=== PATIENT | male | born 1945 | race Caucasian/White ===

== ENCOUNTER → 2019-07-24 | Outpatient (CLI) | payer MEDICARE ==
[2019-07-24 14:59] LABS: Basophils % (A) 0 %; Eosinophils # (A) 0.1 k/uL (0-0.7); Eosinophils % (A) 2 %; HCT 40.9 % (39.0-53.0); HGB 12.8 gm/dL (13.0-17.5); Lymphocytes # (A) 2.5 k/uL (1.0-4.8); Lymphocytes % (A) 35 %; MCH 28.9 pg (25.0-35.0); MCHC 31.2 g/dL (31.0-37.0); MCV 92.5 fL (80.0-100.0); Mean Platelet Volume 6.3; Monocytes # (A) 0.6 k/uL (0-1.0); Monocytes % (A) 8 %; Neutrophils # (A) 3.7 k/uL (1.3-7.7); Neutrophils % (A) 51 %; Platelet Count 257 k/uL (150-450); RBC 4.42 m/uL (4.30-5.90); RDW 14.7 % (11.5-15.5); WBC 7.3 k/uL (3.8-10.6)
[2019-07-24 19:16] LABS: Iron Saturation 30.13 (15.00-50.00)
[2019-07-24 19:34] LABS: Ferritin 14.3 ng/mL (22.0-322.0)
== END | disposition home or self-care (01) ==
LOC: LABWHC1 14:18
PROVIDERS: ATTEND Internal Medicine Gastroenterology
DX: D50.9 Iron deficiency anemia, unspecified (principal)
CPT/HCPCS: 36415; 82728; 83540; 83550; 85025

== ENCOUNTER → 2019-11-21 | Outpatient (CLI) | payer MEDICARE ==
--- NOTE | 2019-11-22 17:00 | ECHOF ---
Referral Reason:I70 atherosclerosis MEASUREMENTS -------- HEIGHT: 190.5 cm WEIGHT: 95.3 kg BP: 121/70 RVIDd: 3.4 cm (< 3.3) IVSd: 1.1 cm (0.6 - 1.1) LVIDd: 4.3 cm (3.9 - 5.3) LVPWd: 1.0 cm (0.6 - 1.1) IVSs: 1.9 cm LVIDs: 2.9 cm LVPWs: 1.8 cm LA Diam: 2.9 cm (2.7 - 3.8) LAESV Index (A-L): 25.13 ml/m Ao Diam: 4.0 cm (2.0 - 3.7) AV Cusp: 2.4 cm (1.5 - 2.6) MV EXCURSION: 15.618 mm (> 18.000) MV EF SLOPE: 49 mm/s (70 - 150) EPSS: 0.8 cm MV E Anthony: 0.81 m/s MV DecT: 307 ms MV A Anthony: 0.95 m/s MV E/A Ratio: 0.85 RAP: 5.00 mmHg RVSP: 24.13 mmHg TAPSE: 16.40 mm FINDINGS -------- Sinus rhythm. This was a technically good study. The left ventricular size is normal. Left ventricular wall thickness is normal. Overall left vent ricular systolic function is normal with, an EF between 60 - 65 %. The right ventricle is mildly enlarged. Normal LA size by volume 22+/-6 ml/m2. The right atrium is normal in size. Interatrial and interventricular septum intact. There is mild aortic valve sclerosis. Trace amount of aortic regurgitation. Mild mitral annular calcification present. There is trace mitral regurgitation. Mild tricuspid regurgitation present. Right ventricular systolic pressure is normal at < 35 mmHg. Trace/mild (physiologic) pulmonic regurgitation. The aortic root is dilated measuring 4.0cm. Normal inferior vena cava with normal inspiratory collapse consistent with estimated right atrial pre ssure of 5 mmHg. There is no pericardial effusion. CONCLUSIONS -------- 1. Sinus rhythm. 2. This was a technically good study. 3. The left ventricular size is normal. 4. Left ventricular wall thickness is normal. 5. Overall left ventricular systolic function is normal with, an EF between 60 - 65 %. 6. The right ventricle is mildly enlarged. 7. Normal LA size by volume 22+/-6 ml/m2. 8. The right atrium is normal in size. 9. Interatrial and interventricular septum intact. 10. There is mild aortic valve sclerosis. 11. Trace amount of aortic regurgitation. 12. Mild mitral annular calcification present. 13. There is trace mitral regurgitation. 14. Mild tricuspid regurgitation present. 15. Right ventricular systolic pressure is normal at < 35 mmHg. 16. Trace/mild (physiologic) pulmonic regurgitation. 17. The aortic root is dilated measuring 4.0cm. 18. Normal inferior vena cava with normal inspiratory collapse consistent with estimated right atrial pressure of 5 mmHg. 19. There is no pericardial effusion. TRIAL COURT JUSTICE: Janice Lujan RDCS
== END | disposition home or self-care (01) ==
LOC: RADECHMAIN 12:56
PROVIDERS: ATTEND Internal Medicine
DX: I08.3 Combined rheumatic disorders of mitral, aortic and tricuspid valves (principal); I08.8 Other rheumatic multiple valve diseases; I70.8 Atherosclerosis of other arteries
CPT/HCPCS: 93306

== ENCOUNTER → 2019-12-01 | Outpatient (CLI) | payer MEDICARE ==
[2019-12-01 16:00] LABS: African American GFR (CKD) >90 (>60 ml/min/1.73 sqM); Blood Urea Nitrogen 13 mg/dL (9-20); Non-African American GFR(CKD) 86 (>60 ml/min/1.73 sqM)
--- NOTE | 2019-12-03 09:23 | CT ---
EXAMINATION TYPE: CT chest w con DATE OF EXAM: 12/01/2019 COMPARISON: None HISTORY: 74-year-old male Thoracic aortic ectasia TECHNIQUE: Contiguous axial scanning of the chest after the administration of 100 mL of Isovue 300. Coronal/sagittal reconstructions performed. CT DLP: 649mGycm. Automatic exposure control utilized for a dose reduction. FINDINGS: Heart normal size without pericardial effusion. Ectatic aortic root at 3.9 cm. Mildly aneurysmal ascending aorta 4.2 cm. Conventional chest branching anatomy. Only minimal scattered atherosclerotic calcifications are prese nt. Ectatic upper descending thoracic aorta 3.4 cm. Mildly tortuous descending thoracic aorta and borderline ectasia distally at 2.6 cm. No thoracic lymphadenopathy by CT size criteria. Biapical pleural parenchymal scarring in the lungs. Strandy reticular subpleural atelectasis and scar ring at the posterior lung bases. Minimal traction bronchiolectasis within the medial right lower lob e. No consolidation or pleural effusion. Subcentimeter hypodensity in the hepatic dome too small for accurate CT characterization, probable ti ny cyst. Bones: Moderate degenerative disc disease mid to lower thoracic spine. No osseous destructive process . IMPRESSION: 1. Ectatic thoracic aorta with mild aneurysm ascending aorta at 4.2 cm. The upper descending thoracic aorta measures up to 3.4 cm. Aortic root measures ectatic at 3.9 cm. 2. Biapical pleural-parenchymal scarring along with some strandy subpleural atelectasis and scarring at the posterior lung bases. Some associated minimal traction bronchiolectasis at the right base prob ably from chronic postinfectious/inflammatory sequela.
== END | disposition home or self-care (01) ==
LOC: RADCTMAIN 15:24
PROVIDERS: ATTEND Internal Medicine
DX: I77.810 Thoracic aortic ectasia (principal); J98.4 Other disorders of lung; J98.11 Atelectasis; J47.9 Bronchiectasis, uncomplicated
CPT/HCPCS: 82565; 84520; 71260; 36415; Q9967

== ENCOUNTER → 2019-12-02 | Outpatient (CLI) | payer MEDICARE ==
--- NOTE | 2019-12-02 18:28 | MR ---
EXAMINATION TYPE: MR iac wo/w con DATE OF EXAM: 12/02/2019 COMPARISON: None HISTORY: Acoustic nerve disorder, RT side hearing loss TECHNIQUE: Multiplanar, multisequence images of the brain and brainstem is performed without and with IV contras t, utilizing 9.5 mL intravenous Gadavist . FINDINGS: Diffusion weighted images demonstrate no evidence of a recent infarct or other diffusion ab normality. Mild generalized degenerative change. There are both diffuse and focal areas of abnormal s ignal seen throughout the white matter nonspecific pattern but most typical of vascular ischemia. Midline structures demonstrate normal morphology. The craniocervical junction appears within normal limits. Post contrast images demonstrate no abnormal enhancement. The dural venous sinuses appear pa tent. Changes of chronic sinusitis noted. The orbits are symmetric appearance. Mastoid air cells are clear. Visualized nasopharynx and oropharynx are symmetric. There are there are couple 5 mm areas of low sig nal on T1 within the posterior nasopharynx mucosa to small to characterize and only partially include d. High signal seen on T1 sagittal along the parietal dura appears to correspond to calcifications se en by previous CT scan of 2016 and therefore likely benign. IMPRESSION: 1. No evidence of cerebellar pontine angle mass or acoustic schwannoma. 2. Degenerative and extensive nonspecific white matter changes most typical remote microvascular isch emia. 3. There is mild prominence to the nasopharynx with 3 sub-5 mm rounded or oval areas of signal. Could represent small mucosal lesions. Recommend follow-up CT soft tissue neck. #4 moderate changes of chr onic sinusitis
== END | disposition home or self-care (01) ==
LOC: RADMRIMAIN 09:46
PROVIDERS: ATTEND Otolaryngology
DX: G31.9 Degenerative disease of nervous system, unspecified (principal); H91.90 Unspecified hearing loss, unspecified ear; R90.89 Other abnormal findings on diagnostic imaging of central nervous system
CPT/HCPCS: 70553; A9585

== ENCOUNTER → 2020-02-25 | Outpatient (CLI) | payer MEDICARE ==
[2020-02-25 12:12] LABS: Basophils % (A) 0 %; Eosinophils # (A) 0.1 k/uL (0-0.7); Eosinophils % (A) 1 %; HCT 46.2 % (39.0-53.0); HGB 15.1 gm/dL (13.0-17.5); Lymphocytes # (A) 2.2 k/uL (1.0-4.8); Lymphocytes % (A) 36 %; MCH 30.7 pg (25.0-35.0); MCHC 32.7 g/dL (31.0-37.0); MCV 94.1 fL (80.0-100.0); Mean Platelet Volume 7.6; Monocytes # (A) 0.4 k/uL (0-1.0); Monocytes % (A) 6 %; Neutrophils # (A) 3.2 k/uL (1.3-7.7); Neutrophils % (A) 52 %; Platelet Count 306 k/uL (150-450); RBC 4.91 m/uL (4.30-5.90); RDW 13.3 % (11.5-15.5); WBC 6.1 k/uL (3.8-10.6)
[2020-02-25 16:20] LABS: % Iron Saturation 62.34 (15.00-50.00)
[2020-02-25 16:30] LABS: Ferritin 28.3 ng/mL (22.0-322.0)
== END | disposition home or self-care (01) ==
LOC: LABWHC1 11:19
PROVIDERS: ATTEND Nurse Practitioner
DX: D50.9 Iron deficiency anemia, unspecified (principal)
CPT/HCPCS: 36415; 82728; 83540; 83550; 85025

== ENCOUNTER → 2020-12-10 | Outpatient (CLI) | payer MEDICARE ==
--- NOTE | 2020-12-10 21:53 | CT ---
EXAMINATION TYPE: CT chest wo con DATE OF EXAM: 12/10/2020 COMPARISON: 12/01/2019. HISTORY: f/u aneurysm CT DLP: 242 mGycm. Automated Exposure Control for Dose Reduction was Utilized. TECHNIQUE: CT scan of the thorax is performed without IV contrast. FINDINGS: LUNGS: There is mild bibasilar atelectasis. Otherwise the lungs are grossly clear, there is no concer maki parenchymal mass or nodule identified. There is no pleural effusion or pneumothorax seen. The tracheobronchial tree is patent. MEDIASTINUM: Lack of IV contrast is noted to limit evaluation for mediastinal and especially hilar ad enopathy. There is stable 4.2 cm descending aortic aneurysm. There are no definitive greater than 1 c m hilar or mediastinal lymph nodes. No cardiomegaly or pericardial effusion is seen. OTHER: No additional significant abnormality is seen. IMPRESSION: Stable 4.2 cm ascending aortic aneurysm. Otherwise no acute abnormality.
== END | disposition home or self-care (01) ==
LOC: RADCTMAIN 17:53
PROVIDERS: ATTEND Internal Medicine
DX: I71.2 Thoracic aortic aneurysm, without rupture (principal)
CPT/HCPCS: 71250

== ENCOUNTER → 2021-07-12 | Outpatient (CLI) | payer MEDICARE | END | disposition home or self-care (01) | LOC: LABWHC1 11:29 | PROVIDERS: ATTEND Internal Medicine | DX: Z01.84 Encounter for antibody response examination (principal) | CPT/HCPCS: 36415; 86769 ==

== ENCOUNTER 2021-09-23 21:33 | Emergency (ER) | payer MEDICARE ==
[2021-09-23] MEDS ORDERED: ACETAMINOPHEN TAB 500 MG TAB PO STA (23:11)
--- NOTE | 2021-09-23 23:57 | ED ---
General Adult HPI - General Chief complaint: Upper Respiratory Infection Stated complaint: Wants COVID Test, fatigue Time Seen by Provider: 09/23/21 22:35 Source: patient Mode of arrival: ambulatory Limitations: no limitations - History of Present Illness Initial comments: 76-year-old male patient presents to the emergency department today for evaluation of fatigue, generalized weakness, congestion. States he has had low- grade fevers. Symptoms started 2 days ago. Has not been vaccinated for COVID- 19 and would like to be tested. Denies taking any medication for his symptoms. Denies any sputum production or significant cough. Denies any rash. Denies any vomiting or diarrhea. Denies any chest pain. States he has had some mild issues with balance. Denies dizziness, numbness, tingling, or weakness to the extremities. - Related Data Home Medications Medication Instructions Recorded Confirmed No Known Home Medications 01/03/19 01/08/19 Allergies Allergy/AdvReac Type Severity Reaction Status Date / Time No Known Allergies Allergy Verified 09/23/21 21:37 Review of Systems ROS Statement: Those systems with pertinent positive or pertinent negative responses have been documented in the HPI. ROS Other: All systems not noted in ROS Statement are negative. Past Medical History Past Medical History: GI Bleed History of Any Multi-Drug Resistant Organisms: None Reported Past Surgical History: Tonsillectomy Past Anesthesia/Blood Transfusion Reactions: No Reported Reaction Past Psychological History: No Psychological Hx Reported Smoking Status: Never smoker Past Alcohol Use History: Occasional Past Drug Use History: None Reported - Past Family History Sister(s) Family Medical History: Cancer Brother(s) Family Medical History: Cancer General Exam Limitations: no limitations General appearance: alert, in no apparent distress, other (this is a well- developed, well-nourished adult male patient in no acute distress.) ENT exam: Present: normal exam, normal oropharynx, mucous membranes moist Respiratory exam: Present: normal lung sounds bilaterally. Absent: respiratory distress, wheezes, rales, rhonchi, stridor Cardiovascular Exam: Present: regular rate, normal rhythm, normal heart sounds. Absent: systolic murmur, diastolic murmur, rubs, gallop, clicks GI/Abdominal exam: Present: soft, normal bowel sounds. Absent: distended, tenderness, guarding, rebound, rigid Neurological exam: Present: alert, oriented X3, CN II-XII intact Psychiatric exam: Present: normal affect, normal mood Skin exam: Present: warm, dry, intact, normal color. Absent: rash Course Vital Signs 09/23/21 09/24/21 21:38 02:12 Temperature 99.8 F H 98.2 F Pulse Rate 91 74 Respiratory 20 18 Rate Blood Pressure 116/72 119/71 O2 Sat by Pulse 96 95 Oximetry Medical Decision Making - Medical Decision Making 76-year-old male patient presents to the emergency department today for evaluation of upper respiratory symptoms, fatigue, weakness. Physical exa mination is unremarkable. Did have mildly elevated temperature. He did test positive for COVID. Chest xray negative. He initially refused antibody infusion, then changed his mind. I did discuss risks vs benefits. He did tolerate the infusion well. He will be discharged to follow up with his primary care physician for recheck in 1-2 days. Return parameters were discussed in detail. He verbalizes understanding and agrees with this plan. My attending is Dr. Mcdowell. - Lab Data Lab Results 09/23/21 Range/Units 21:42 Coronavirus (PCR) Detected A (Not Detectd) - Radiology Data Radiology results: report reviewed, image reviewed Two-view x-ray of the chest was obtained. Report was reviewed in its entirety. Impression by Dr. Blanco shows minimal subsegmental atelectasis. This appears new compared to old exam. Normal heart. No pulmonary infiltrates. Disposition Clinical Impression: COVID-19 Disposition: HOME SELF-CARE Condition: Good Instructions (If sedation given, give patient instructions): Coronavirus Disease 2019 (COVID-19) Additional Instructions: Tips to help you feel better: -Maintain adequate fluid intake - especially water. -Rest, you are healing your body will require extra sleep. -Eat even if you do not feel like it - broth, jello, toast are fine if you cannot eat full meals. -Take tylenol and motrin alternating (if you have no allergies or have not been instructed to avoid these medications) to help with body aches and fevers. -Obtain over the counter vitamin C, zinc, and vitamin D3. -Take medications as prescribed. -Return within 7 days if you want to have the antibody infusion. Follow-up with your primary care physician for recheck in 1-2 days. Return for any new, worsening, or concerning symptoms. Is patient prescribed a controlled substance at d/c from ED?: No Referrals: Clara Mcintyre MD [Primary Care Provider] - 1-2 days Time of Disposition: 23:56
--- NOTE | 2021-09-23 23:58 | XR ---
EXAMINATION TYPE: XR chest 2V DATE OF EXAM: 09/23/2021 COMPARISON: 05/20/2016 HISTORY: Pneumonia TECHNIQUE: 2 views FINDINGS: Heart and mediastinum are within normal limits. Lungs are clear of infiltrate. Morgan thorax is intact. diaphragm is normal. Thoracic spine is intact. On the lateral view there is small area of subsegmental atelectasis at the posterior lung base. IMPRESSION: Minimal subsegmental atelectasis. This appears new compared to old exam. Normal heart. No pulmonary infiltrates.
[2021-09-24] MEDS ORDERED: SODIUM CHLORIDE 0.9% 50 ML IVPB ONE (00:30)
[2021-09-24] MEDS ORDERED: CASIRIVIMAB (REGN10933) (EUA) 600 MG, IMDEVIMAB (REGN10987) (EUA) 600 MG in SODIUM CHLO... IVPB ONE (01:00)
[2021-09-24 02:13] VITALS: BP 119/71; PULSE 74; RESP 18; TEMP 98.2
== END 2021-09-24 02:12 | disposition home or self-care (01) ==
LOC: EC 21:33
DX: U07.1 COVID-19 (principal)
CPT/HCPCS: 87635; 71046; 99285; Q0244

== ENCOUNTER → 2021-12-06 | Outpatient (CLI) | payer MEDICARE ==
[2021-12-06 16:16] LABS: African American GFR (CKD) >90 (>60 ml/min/1.73 sqM); Blood Urea Nitrogen 12 mg/dL (9-20); Non-African American GFR(CKD) 84 (>60 ml/min/1.73 sqM)
--- NOTE | 2021-12-06 21:25 | CT ---
EXAMINATION TYPE: CT angio chest DATE OF EXAM: 12/06/2021 4:56 PM COMPARISON: CT dated 12/10/2020 and 12/01/2019 HISTORY: f/u aneurysm CT DLP: 919.1 mGycm Automated exposure control for dose reduction was used. CONTRAST: CTA scan of the thorax is performed without and with IV Contrast, patient injected with 100 mL of Iso javed 370, CT of thoracic aortic angiogram protocol. MIP and 3-D images were performed and reviewed. FINDINGS: Ascending thoracic aortic aneurysm measuring up to 4.2 cm, stable. No extension of the aneurysm into the aortic arch. Scattered arterial atherosclerotic calcifications with moderate to marked coronary a rterial calcifications. Otherwise unremarkable thoracic and upper abdominal aorta as well as major me diastinal arteries without significant stenosis, occlusion, dissection or other aneurysms. The pulmon isis trunk measures up to 3.2 cm. No gross cardiomegaly. No progressive lymphadenopathy. Stable bilateral basal subpleural pulmonary reticulations and minimal fibrotic changes, more on the right side. Stable 3 mm faint nodule at the posterolateral aspect of t he left lower lobe. Minimal bilateral apical pulmonary fibrotic changes. Unremarkable lungs otherwise . Patent central airways. No pleural or pericardial effusion. Stable subcentimeter segment 4A hepatic cyst. Osteopenia. Degenerative changes of thoracic spine. Old healed fracture of the body of the ayesha rnum. IMPRESSION: Stable known ascending thoracic aortic aneurysm as described above. No evidence of aortic dissection. Other incidental findings as described above.
== END ==
LOC: RADCTMAIN 15:47
PROVIDERS: ATTEND Surgery
DX: I71.2 Thoracic aortic aneurysm, without rupture (principal)
CPT/HCPCS: 82565; 84520; 71275; 36415; Q9967

== ENCOUNTER → 2022-08-23 | Outpatient (CLI) | payer MEDICARE ==
[2022-08-23 18:16] LABS: Basophils # (A) 0.01 X 10*3/uL (0.00-0.10); Basophils % (A) 0.2 %; Eosinophils # (A) 0.07 X 10*3/uL (0.04-0.35); Eosinophils % (A) 1.4 %; HCT 40.9 % (39.6-50.0); Immature Grans, Automated 0.2 %; Lymphocytes # (A) 1.56 X 10*3/uL (0.90-5.00); Lymphocytes % (A) 30.4 %; MCH 29.2 pg (27.0-32.0); MCHC 31.8 g/dL (32.0-37.0); MCV 91.9 fL (80.0-97.0); Mean Platelet Volume 10.3 fL (9.5-12.2); Monocytes # (A) 0.67 X 10*3/uL (0.20-1.00); Monocytes % (A) 13.1 %; NRBC Per 100 WBC 0 /100 WBCS (0.0-0.0); Neutrophils # (A) 2.81 X 10*3/uL (1.80-7.70); Neutrophils % (A) 54.7 %; Platelet Count 286 X 10*3/uL (140-440); RBC 4.45 X 10*6/uL (4.40-5.60); RDW 14.1 % (11.5-14.5); WBC 5.13 X 10*3/uL (4.50-10.00)
[2022-08-23 20:00] LABS: ALT 45 U/L (10-49); AST 49 U/L (14-35); African American GFR (CKD) 92.6 (60.0-200.0); Albumin 4.3 g/dL (3.8-4.9); Albumin/Globulin Ratio 1.61 (1.60-3.17); Alkaline Phosphatase 117 U/L (41-126); BUN/Creat Ratio 13.61 Ratio (12.00-20.00); Blood Urea Nitrogen 12.6 mg/dL (9.0-27.0); Calcium 8.9 mg/dL (8.7-10.3); Chloride 106 mmol/L (96-109); Chol/HDL Ratio 4.56 Ratio; Globulin 2.7 g/dL (1.6-3.3); Glucose 92 mg/dL (70-110); Non-African American GFR(CKD) 79.9 (60.0-200.0); Potassium 5.6 mmol/L (3.5-5.5); Sodium 139 mmol/L (135-145)
== END | disposition home or self-care (01) ==
LOC: LABWHC1 11:00
PROVIDERS: ATTEND Internal Medicine
DX: Z12.5 Encounter for screening for malignant neoplasm of prostate (principal); E03.9 Hypothyroidism, unspecified; N40.0 Benign prostatic hyperplasia without lower urinary tract symptoms
CPT/HCPCS: 80061; 80053; 84443; 85025; 36415; G0103

== ENCOUNTER → 2022-08-30 | Outpatient (CLI) | payer MEDICARE ==
[2022-08-30 23:39] LABS: African American GFR (CKD) 90.3 (60.0-200.0); BUN/Creat Ratio 13.02 Ratio (12.00-20.00); Blood Urea Nitrogen 12.3 mg/dL (9.0-27.0); Calcium 8.9 mg/dL (8.7-10.3); Magnesium 1.9 mg/dL (1.5-2.4); Non-African American GFR(CKD) 77.9 (60.0-200.0); Potassium 4.9 mmol/L (3.5-5.5)
== END | disposition home or self-care (01) ==
LOC: LABWHC1 15:39
PROVIDERS: ATTEND Internal Medicine
DX: E03.9 Hypothyroidism, unspecified (principal)
CPT/HCPCS: 36415; 80048; 83735

== ENCOUNTER → 2023-05-14 | Outpatient (CLI) | payer MEDICARE ==
--- NOTE | 2023-05-14 08:47 | US ---
EXAMINATION TYPE: US liver DATE OF EXAM: 05/14/2023 COMPARISON: NONE CLINICAL INDICATION: Male, 77 years old with history of R74.01; TECHNIQUE: Multiple sonographic images of the right upper quadrant are obtained. FINDINGS: EXAM MEASUREMENTS: Liver Length: 13.6 cm Gallbladder Wall: .2 cm CBD: .4 cm Right Kidney: 9.5 x 5.0 x 4.1 cm Pancreas: Obscured by bowel gas Liver: wnl Gallbladder: No stones seen Evidence for sonographic Corral's sign: No CBD: wnl Right Kidney: No hydronephrosis or masses seen IMPRESSION: No evidence for acute process.
== END | disposition home or self-care (01) ==
LOC: RADUSWWP 08:14
PROVIDERS: ATTEND Internal Medicine
DX: R74.01 Elevation of levels of liver transaminase levels (principal)
CPT/HCPCS: 76705

== ENCOUNTER 2023-09-28 08:03 | Day surgery (SDC) | payer MEDICARE ==
[2023-09-26 11:04] VITALS: BMI 24.4
[~2023-09-28 08:03] MED LIST: LACTATED RINGERS 1,000 ML IV SCH; LIDOCAINE 1% (10MG/ML) FOR IV START INTRADERMA PRN
[2023-09-28 08:51] VITALS: TEMP 97.5
[2023-09-28] MEDS ORDERED: PROPOFOL 10 MG/ML 20 ML VIAL IV ONE (08:55)
[2023-09-28] MEDS ORDERED: LIDOCAINE 2% (PF) 20 MG/ML 5 ML VIAL ONE (08:55)
--- NOTE | 2023-09-28 09:19 | P.PCN ---
Date of Procedure: 09/28/23 Procedure(s) Performed: Brief history: Patient is a pleasant 78-year-old white male scheduled for an elective upper endoscopy as well as colonoscopy as a part of evaluation of celiac disease and screening for colon cancer Procedure performed: Esophagogastroduodenoscopy with biopsy Colonoscopy Preoperative diagnosis: 3 of celiac disease Screening for colon cancer Anesthesia: MAC Procedure: After informed consent was obtained from the patient was brought into the endoscopy unit and IV sedation was administered by anesthesia under continuous monitoring. Initially upper endoscopy was done. The Olympus GF 160 video endoscope was inserted inserted into the mouth and esophagus intubated without any difficulty and was gradually advanced into the stomach and duodenum and carefully examined. The bulb and second part of the duodenumhad mild duodenitis and atrophic appearing mucosa consistent with celiac disease and biopsies were done from this area.. The scope was then withdrawn into the stomach adequately insufflated with air and upon careful examination the antrumhad some gastritis in the prepyloric area which was biopsied. Because of thed body, cardia and fundus appeared normal. The scope was then withdrawn into the esophagus. The GE junction was located at 40 cm to the incisors. It appeared regular with no erythema erosions or ulcerations. Rest of the esophagus appeared normal. Patient tolerated the procedure well. At this time the patient continued to remain sedation. Initial digital rectal examination was normal. Olympus CF 160 video colonoscope was then inserted into the rectum and gradually advanced to the cecum without any difficulty. Careful examination was performed as the scope was gradually being withdrawn. The prep was excellent. The cecum, ascending colon, transverse colon, descending colon, sigmoid colon and rectum appeared normal. Retroflexion was performed in the rectum and small internal hemorrhoids were noted. Patient tolerated the procedure well. Impression: 1.Upper Endoscopy revealed mild gastritis in the prepyloric area and duodenitis with decreased duodenal folds consistent with celiac disease. 2.Colonoscopy revealed small internal hemorrhoids but no evidence of colitis or colorectal neoplasia Recommendations: Findings of this examination were discussed with the patient as well as his family. He was advised to follow with the biopsy results. Continue with a strict gluten-free diet.
[2023-09-28 09:43] VITALS: BP 125/80; PULSE 57; RESP 20
== END 2023-09-28 10:02 | disposition home or self-care (01) ==
LOC: ORWHC2ENDO 08:03
PROVIDERS: ATTEND Internal Medicine Gastroenterology
DX: Z12.11 Encounter for screening for malignant neoplasm of colon (principal); K29.50 Unspecified chronic gastritis without bleeding; K29.80 Duodenitis without bleeding; D72.820 Lymphocytosis (symptomatic); K64.8 Other hemorrhoids; K90.0 Celiac disease; K31.A0 Gastric intestinal metaplasia, unspecified; H91.90 Unspecified hearing loss, unspecified ear; E07.9 Disorder of thyroid, unspecified; Z86.010 Personal history of colon polyps; Z79.890 Hormone replacement therapy; Z79.899 Other long term (current) drug therapy
CPT/HCPCS: 88305; 88342; 45378; 43239; J2704; J2001

== ENCOUNTER → 2023-12-10 | Outpatient (CLI) | payer MEDICARE ==
--- NOTE | 2023-12-10 14:18 | CT ---
EXAMINATION TYPE: CT chest wo con DATE OF EXAM: 12/10/2023 COMPARISON: 12/07/2022 HISTORY: 78-year-old male I71.20, thoracic aneurysm recheck TECHNIQUE: Contiguous axial scanning of the chest without IV contrast. Coronal/sagittal reconstructio ns performed. CT DLP: 497mGycm. Automatic exposure control utilized for a dose reduction. FINDINGS: Heart normal size without pericardial effusion. LAD and RCA coronary calcifications are present and u nremarkable for coronary artery disease. Mild aneurysm aortic root at 4.0 cm versus 3.9 cm, previously. Ascending aorta 4.3 cm, unchanged. Con ventional arch vessel branching anatomy. Ectatic upper descending thoracic aorta 3.4 cm is unchanged. No thoracic adenopathy by CT size criteria. Mild biapical pleural-parenchymal scarring. Minimal emphysematous change. No consolidation or pleural effusion. Some subpleural scarring posteromedial right lower lobe. Unchanged 4 mm pulmonary nodule posterior right base. Unchanged 4 mm pulmonary nodule posterolateral left base. 8 mm hypodensity central left liver lobe unchanged, likely cyst. Moderate stool burden. Accentuated mid thoracic kyphosis and moderate degenerative disc disease. Suspect old healed fracture deformity superior sternal body. IMPRESSION: Relatively unchanged aneurysm aortic root at 4.0 cm (versus 3.9 cm, previously). Unchanged aneurysm a scending aorta 4.3 cm.
== END | disposition home or self-care (01) ==
LOC: RADCTMAIN 13:24
PROVIDERS: ATTEND Surgery
DX: I71.21 Aneurysm of the ascending aorta, without rupture (principal)
CPT/HCPCS: 71250

== ENCOUNTER → 2024-03-25 | Outpatient (CLI) | payer MEDICARE ==
--- NOTE | 2024-03-25 13:12 | CA ---
Stress Echo Report Wilber Cardoso Age: 78 Gender: M : 1945 Exam Date: 03/25/2024 09:22 Exam Location: [facility] Stress Ht (in): 74 Wt (lb): 190 Ordering Physician: Rebel Knott DO Referring Physician: ROSY,, Orthopaedic Physician Assistant: William Soto Technologist Procedure CPT: Indication: R07.9 CHEST PAIN ICD-9 Codes: Rhythm: Patient History: Cardiac Medications: ARMOR,,,,, Medications in past 24 hours: Contrast: Definity Stress Results Protocol: Leodan Total dose(mL): 2 Exercise Duration (min:sec): 7:[address] Depression (mm): Angina Score: Bentley Score: METS: 9.5 Resting HR: 68 Resting BP: 114 / 69 Peak HR: 131 Peak BP: 170 / 70 Max Predicted HR: 142 92 % Max Predicted HR Target HR: 121 Double Product: [id number] Stress Summary: BP Response: Reason for Termination: Reached target heart rate or work-load Cardiac Symptoms: SHORT OF BREATH ECG Analysis Resting ECG: Stress ECG: Arrhythmia: Echo Analysis Resting Echo: Peak Echo Analysis: MEASUREMENTS (Male/Female) Normal Values CONCLUSIONS Average exercise capacity of 8 minutes Abnormal EKG response to exercise with [address] depression No echocardiographic findings of ischemia Impression Abnormal stress echo based on ECG criteria Dr. Brenden Castaneda MD (Electronically Signed) Final Date: 25 March 2024 13:11
== END | disposition home or self-care (01) ==
LOC: RADNMMAIN 09:06
PROVIDERS: ATTEND Internal Medicine
DX: R94.31 Abnormal electrocardiogram [ECG] [EKG] (principal); R07.9 Chest pain, unspecified
CPT/HCPCS: C8930; Q9957; 93351

== ENCOUNTER → 2024-12-25 | Outpatient (CLI) | payer MEDICARE ==
--- NOTE | 2024-12-25 11:31 | CT ---
EXAMINATION TYPE: CT chest wo con DATE OF EXAM: 12/25/2024 10:36 AM COMPARISON: 12/10/2023 CLINICAL INDICATION: Male, 79 years old with history of I71.20 THORACIC AORTIC ANEURYSM; PHH, Thoraci c aneurysm TECHNIQUE: Multiple axial images were obtained through the chest. Sagittal and coronal reformats were created for review. MIP was performed on a separate workstation. Contrast used: mL of (None if empty) Oral contrast used: (None if empty) CT DLP: 359.3 mGycm, Automated exposure control for dose reduction was used. FINDINGS: LUNGS/ PLEURA: No focal consolidation, pneumothorax or pleural effusion. AIRWAY: Patent and unremarkable. HEART: Size within normal limits. Moderate coronary artery calcifications present. MEDIASTINUM: No gross evidence of adenopathy. VASCULATURE: Ascending thoracic aorta ectasia up to 45 mm, previously 43/42 mm on prior exams likely due to differences in phase of cardiac cycle. No aortic aneurysm. MUSCULOSKELETAL: Mild disc degeneration changes are present throughout the thoracolumbar spine second siis to osteophyte formation and facet joint arthropathy. SOFT TISSUES/LYMPH NODES: Unremarkable. LOWER NECK: No significant findings. UPPER ABDOMEN: No significant findings. IMPRESSION: 1. No evidence for acute process. 2. Ascending thoracic aorta ectasia up to 45 mm, previously 42/43 mm and multiple various exams whic h could be due to phase of cardiac cycle. No evidence for aneurysm. 3. Moderate coronary artery atherosclerosis. [facility], , 12/25/2024 11:28 AM
== END | disposition home or self-care (01) ==
LOC: RADCTMAIN 10:23
PROVIDERS: ATTEND Surgery
DX: I77.810 Thoracic aortic ectasia (principal); I25.10 Atherosclerotic heart disease of native coronary artery without angina pectoris
CPT/HCPCS: 71250

== ENCOUNTER → 2025-03-03 | Outpatient (CLI) | payer MEDICARE ==
--- NOTE | 2025-03-03 11:24 | XR ---
EXAMINATION TYPE: XR shoulder complete 3 views RT, XR humerus 2 views RT DATE OF EXAM: 03/03/2025 11:17 AM COMPARISON: None CLINICAL INDICATION: Male, 79 years old with history of M25.511 PAIN IN RIGHT SHOULDER; PHH, pain FINDINGS: Right shoulder: Osteopenia. Mild degenerative spurring AC joint. Subacromial space is preserved. No acute fracture, s ubluxation, dislocation. Right humerus: No acute fracture. No periostitis or osteolysis. IMPRESSION (right shoulder and humerus): 1. Osteopenia without acute osseous abnormality seen. 2. Mild AC joint OA. [facility], Workstation: [facility], 03/03/2025 11:22 AM
== END | disposition home or self-care (01) ==
LOC: RADXRMAIN 10:50
PROVIDERS: ATTEND Internal Medicine
DX: M85.811 Other specified disorders of bone density and structure, right shoulder (principal); M19.011 Primary osteoarthritis, right shoulder

== ENCOUNTER → 2025-03-03 | Outpatient (CLI) | payer MEDICARE ==
[2025-03-03 11:31] LABS: Ionized Calcium 4.8 mg/dL (4.5-5.3)
[2025-03-03 12:19] LABS: ALT 35 U/L (4-49); AST 48 U/L (17-59); African American GFR (CKD) >90 (>60 ml/min/1.73 sqM); Albumin 4.2 g/dL (3.5-5.0); Albumin/Globulin Ratio 1.4; Alkaline Phosphatase 137 U/L (38-126); Anion Gap 8 mmol/L; Blood Urea Nitrogen 14 mg/dL (9-20); Calcium 9.2 mg/dL (8.4-10.2); Carbon Dioxide 25 mmol/L (22-30); Chloride 107 mmol/L (98-107); Glucose 88 mg/dL (74-99); Magnesium 1.9 mg/dL (1.6-2.3); Non-African American GFR(CKD) 83 (>60 ml/min/1.73 sqM); Phosphorus 3.6 mg/dL (2.5-4.5); Potassium 5.4 mmol/L (3.5-5.1); Sodium 140 mmol/L (137-145); Total Bilirubin 0.8 mg/dL (0.2-1.3); Total Protein 7.2 g/dL (6.3-8.2)
[2025-03-03 15:44] LABS: Protein, Total 6.9 g/dL (6.2-8.2)
[2025-03-03 16:06] LABS: % Iron Saturation 23.99 (15.00-50.00); Ferritin 23.4 ng/mL (22.0-322.0); Iron 89 UG/DL (65-175); Total Iron Binding Capacity 371 UG/DL (228-460)
[2025-03-03 16:18] LABS: HCT 41.5 % (39.6-50.0); MCH 28.8 pg (27.0-32.0); MCHC 31.3 g/dL (32.0-37.0); MCV 91.8 FL (80.0-97.0); Mean Platelet Volume 10.2 FL (9.5-12.2); NRBC Per 100 WBC 0 X 10*3/uL (0.00-0.01); Platelet Count 300 X 10*3/uL (140-440); RBC 4.52 X 10*6/uL (4.40-5.60); RDW 14.2 % (11.5-14.5); WBC 5.26 X 10*3/uL (4.50-10.00)
[2025-03-03 16:19] LABS: Basophils # (A) 0.02 X 10*3/uL (0.00-0.10); Basophils % (A) 0.4 %; Eosinophils # (A) 0.07 X 10*3/uL (0.04-0.35); Eosinophils % (A) 1.3 %; Lymphocytes # (A) 1.74 X 10*3/uL (0.90-5.00); Lymphocytes % (A) 33.1 %; Monocytes # (A) 0.49 X 10*3/uL (0.20-1.00); Monocytes % (A) 9.3 %; Neutrophils # (A) 2.93 X 10*3/uL (1.80-7.70); Neutrophils % (A) 55.7 %
[2025-03-03 16:58] LABS: Hepatitis A Antibody IgM Nonreactive (Nonreactive); Hepatitis B Core IgM Nonreactive (Nonreactive); Hepatitis B Surface Antigen Nonreactive (Nonreactive); Hepatitis C IgG Antibody Nonreactive (Nonreactive)
== END | disposition home or self-care (01) ==
LOC: LABWHC1 10:26
PROVIDERS: ATTEND Internal Medicine
DX: E83.51 Hypocalcemia (principal); R74.01 Elevation of levels of liver transaminase levels
CPT/HCPCS: 36415; 80053; 80074; 82306; 82330; 82607; 82652; 82728; 82746; 83540; 83550; 83735; 83970; 84100; 84165; 85025; 86038; 86334

== ENCOUNTER → 2025-04-14 | Outpatient (CLI) | payer MEDICARE ==
[2025-04-14 15:03] LABS: Basophils # (A) 0.02 X 10*3/uL (0.00-0.10); Basophils % (A) 0.4 %; Eosinophils # (A) 0.05 X 10*3/uL (0.04-0.35); Eosinophils % (A) 1.0 %; HCT 41.6 % (39.6-50.0); HGB 13.1 g/dL (13.0-17.0); Immature Grans, Automated 0.20 %; Lymphocytes # (A) 1.82 X 10*3/uL (0.90-5.00); Lymphocytes % (A) 38.1 %; MCH 28.9 pg (27.0-32.0); MCHC 31.5 g/dL (32.0-37.0); MCV 91.6 FL (80.0-97.0); Monocytes # (A) 0.55 X 10*3/uL (0.20-1.00); Monocytes % (A) 11.5 %; NRBC Per 100 WBC 0 X 10*3/uL (0.00-0.01); Neutrophils # (A) 2.33 X 10*3/uL (1.80-7.70); Neutrophils % (A) 48.8 %; Platelet Count 278 X 10*3/uL (140-440); RBC 4.54 X 10*6/uL (4.40-5.60); RDW 14.3 % (11.5-14.5); WBC 4.78 X 10*3/uL (4.50-10.00)
[2025-04-14 15:19] LABS: ALT 36 U/L (10-49); AST 47 U/L (14-35); Albumin 4.6 g/dL (3.8-4.9); Albumin/Globulin Ratio 1.59 Ratio (1.60-3.17); Alkaline Phosphatase 148 U/L (41-126); Anion Gap 10.20 mmol/L (4.00-12.00); BUN/Creat Ratio 16.44 Ratio (12.00-20.00); Bilirubin,Unconjugated 0.27 mg/dL (0.20-1.00); Blood Urea Nitrogen 14.8 mg/dL (9.0-27.0); Calcium 8.8 mg/dL (8.7-10.3); Carbon Dioxide 22.8 mmol/L (21.6-31.8); Chloride 108 mmol/L (96-109); Ferritin 18.4 ng/mL (22.0-322.0); Globulin 2.9 g/dL (1.6-3.3); Glucose 69 mg/dL (70-110); Iron 94 UG/DL (65-175); Potassium 4.7 mmol/L (3.5-5.5); Sodium 141 mmol/L (135-145); Total Iron Binding Capacity 399 UG/DL (228-460); Total Protein 7.5 g/dL (6.2-8.2)
[2025-04-14 15:26] LABS: Hepatitis B Surface Antigen Nonreactive (Nonreactive); Hepatitis C IgG Antibody Nonreactive (Nonreactive)
== END | disposition home or self-care (01) ==
LOC: LABWHC1 11:02
PROVIDERS: ATTEND Nurse Practitioner Family
DX: R74.8 Abnormal levels of other serum enzymes (principal)
CPT/HCPCS: 36415; 80053; 82103; 82248; 82390; 82728; 83516; 83540; 83550; 84165; 85025; 86038; 86803; 87340

== ENCOUNTER → 2025-04-22 | Outpatient (CLI) | payer MEDICARE ==
[2025-04-22 11:49] LABS: African American GFR (CKD) >90 (>60 ml/min/1.73 sqM); Anion Gap 10 mmol/L; Blood Urea Nitrogen 16 mg/dL (9-20); Calcium 9.2 mg/dL (8.4-10.2); Carbon Dioxide 25 mmol/L (22-30); Chloride 108 mmol/L (98-107); Glucose 76 mg/dL (74-99); Non-African American GFR(CKD) 83 (>60 ml/min/1.73 sqM); Potassium 5.3 mmol/L (3.5-5.1); Sodium 143 mmol/L (137-145)
--- NOTE | 2025-04-22 17:48 | NM ---
EXAMINATION TYPE: NM parathyroid w/spect DATE OF EXAM: 04/22/2025 COMPARISON: NONE CLINICAL INDICATION: Male, 79 years old with history of E21.3 HYPERPARATHYROIDISM, UNSPECIFIED; TECHNIQUE: Following administration of 24 mCi Tc99m Sestamibi. Anterior projection images of the neck and chest were obtained 10 minutes and 3 hours post injection. SPECT images of the neck and chest were obtaine d and reconstructed in three axes. FINDINGS: Thyroid tracer washout: Delayed images demonstrate near-complete tracer washout from the thyroid. Parathyroid uptake: None. The two-hour delayed images do not demonstrate any focal abnormal persisten t uptake in the region of the parathyroid glands to suggest parathyroid adenoma. Normal uptake: There is physiological tracer uptake in the myocardium, liver, salivary glands, and th yroid gland. IMPRESSION: Normal parathyroid imaging study. No evidence for mediastinal uptake to suggest mediastinal parathyro id adenoma [facility], , 04/22/2025 5:46 PM
== END | disposition home or self-care (01) ==
LOC: RADNMMAIN 10:48
PROVIDERS: ATTEND Internal Medicine
DX: E21.3 Hyperparathyroidism, unspecified (principal)
CPT/HCPCS: 80048; 82330; 78071; A9500